=== PATIENT | male | born 2000 | race Caucasian/White ===

== ENCOUNTER 2024-12-15 08:51 | Emergency (ER) | payer OTHER, SELFPAY ==
[2024-12-15 08:59] VITALS: BP 141/67; PULSE 75; RESP 18; TEMP 36.6; O2SAT 99; BMI 36.6
--- NOTE | 2024-12-15 09:08 | EKG_ITS ---
[address] [address] Test Date: 2024-12-15 Pat Name: Manjinder Malcolm Department: [facility] Room: Gender: Male Dimension Specification Inspector: : [id number] Requested By: Order Number: [id number] Reading MD: Eyal Guajardo MD Measurements Intervals [place] Rate: 71 P: 39 IN: 164 QRS: 71 QRSD: 100 T: 22 QT: 388 QTc: 421 Interpretive Statements Normal sinus rhythm Electronically Signed On 12-20-2024 7:41:43 PDT by Eyal Guajardo MD
--- NOTE | 2024-12-15 09:19 | ED.SOB ---
HPI - SOB/Dyspnea General Chief Complaint: Shortness of Breath/Dyspnea Stated Complaint: Tight chest, SOB, Headache 4 days Time Seen by Provider: 12/15/24 09:18 Source: patient, RN notes reviewed and old records reviewed Mode of arrival: Ambulatory Limitations: no limitations History of Present Illness HPI Narrative: 24-year-old male no reported medical issues presents with complaint of nasal congestion, upper respiratory symptoms, headache, myalgias, nonproductive cough, some chest tightness and mild shortness of breath. Patient states has been going on for about 4 days. Went to sit call today at the [facility] and was sent here for evaluation. He states he is not aware of any fevers. States he has coughed up a little bit of phlegm but has always swallowed it. Denies any swelling in his extremities. Has had some mild constipation. He has had some mild nausea but no vomiting. No dysuria urgency or frequency. Patient states no medical issues no prior surgeries. No known drug allergies. Reports no tobacco, no alcohol, no recreational drugs. 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 Related Data Allergies Allergy/AdvReac Type Severity Reaction Status Date / Time No Known Drug Allergies Allergy Verified 12/15/24 09:00 Review of Systems Review of Systems ROS Unobtainable: All systems reviewed & are unremarkable except as noted in HPI and below Patient History Social History Smoking Status: Never smoker Smoking Status: Never smoker Exam Narrative Exam Narrative: GEN: well nourished, well appearing male, alert and oriented x 3, patient appears to be in my distress. HEENT: Atraumatic, pupils are equal round reactive to light, extraocular movements are intact, mild bilateral nasal congestion, TMs are clear with no fluid, there is no conjunctival pallor. Throat is clear without any exudates, erythema, tonsillar enlargement or uvular deviation HEART: Regular rate and rhythm without murmur, clicks, rubs. No edema bilateral upper and lower extremity. No JVD. LUNGS:Lungs clear to auscultation, no wheezes, rales, crackles, chest moves symmetrically, no tachypnea or accessory muscle use. ABD:bowel sounds normal, soft, non-tender, no guarding, rebound, rigidity, no masses noted, no hepatosplenomegaly MSCL: Full range of motion NEURO:CN 2-12 intact, sensation normal Initial Vital Signs Initial Vital Signs: Vital Signs Temperature 97.8 F 12/15/24 08:59 Pulse Rate 75 12/15/24 08:59 Respiratory Rate 18 12/15/24 08:59 Blood Pressure 141/67 H 12/15/24 08:59 Pulse Oximetry 99 12/15/24 08:59 Oxygen Delivery Method Room Air 12/15/24 08:59 Course Orders Ordered: ED Orders 12/15/24 09:08 EKG-12 Lead Stat 12/15/24 09:16 Covid-19 + FLU A/B + RSV - PCR Stat 12/15/24 09:45 Chest [XR chest 2V] Stat Vital Signs Vital signs: Vital Signs - 8 hr 12/15/24 08:59 12/15/24 09:27 12/15/24 09:30 Temperature 97.8 F Pulse Rate 75 72 Respiratory Rate 18 14 Blood Pressure 141/67 H 128/68 Pulse Oximetry 99 98 Oxygen Delivery Method Room Air 12/15/24 09:30 Temperature Pulse Rate 73 Respiratory Rate 12 Blood Pressure Pulse Oximetry 98 Oxygen Delivery Method MDM - SOB/Dyspnea Lab Data Labs: Lab Results 12/15/24 Range/Units 09:16 SARS-CoV-2 (PCR) Negative (Negative) Influenza A (RT-PCR) Flu a negative (NEGATIVE) Influenza B (RT-PCR) Flu b negative (NEGATIVE) RSV (PCR) Negative (Negative) ECG Data Attestation: I personally reviewed and interpreted this ECG as follows: Prior ECG tracings: not available for review Interpretation: Sinus rhythm rate of 71 MT 164 QRS of 100 QTC of 421, no acute ST elevation depression noted. No prior for comparison MDM Narrative Medical decision making narrative: EKG shows sinus rhythm, no acute ST changes. COVID/influenza/RSV is negative Chest x-ray mild pulmonary vascular congestion no focal intra pleural effusion or pneumothorax. 24-year-old male with a recent upper respiratory symptoms, myalgias, headache, some mild chest discomfort and shortness of breath. Patient's vitals are overall appropriate no hypoxia no signs of sepsis. Discussed with the patient he feels comfortable with discharge home I suspect his symptoms are more related to a viral illness. He is hemodynamically stable with no other red flag changes. No long distance travel. Discussed return precautions all questions he. Discharge Plan Departure Patient Disposition: Home Clinical Impression: Bronchitis Instructions: DI for Acute Bronchitis Activity Restrictions/Additional Instructions: Follow up for recheck as needed. You can take acetaminophen and/or ibuprofen for any fevers or myalgias. Please return if you develop new or worsening chest pain, increased shortness of breath, coughing up blood, any lightheadedness or passing out, persistent fever, any new swelling in extremities or other new or concerning changes. Referrals: [facility] [Primary Care Provider, Family Practice] Stand Alone Forms: Patient Portal/API, Work Release Note
[2024-12-15 09:27] VITALS: PULSE 72; RESP 14; O2SAT 98
[2024-12-15 09:30] VITALS: BP 128/68; PULSE 73; RESP 12; O2SAT 98
--- NOTE | 2024-12-15 09:45 | DI.RAD.S_ITS ---
PROCEDURE: XR CHEST 2V INDICATIONS: chest tightness, URI, cough TECHNIQUE: 2 views of the chest were acquired. COMPARISON: None. FINDINGS: Surgical changes and devices: None. Lungs and pleura: Mild congestive changes are seen. No pleural effusions or pneumothorax. Mediastinum: Mediastinal contours are normal. Heart size is normal. Bones and chest wall: No suspicious bony abnormalities. Soft tissues appear unremarkable. IMPRESSION: Mild pulmonary vascular congestion. No focal infiltrate, pleural effusion or pneumothorax. Dictated by: Aidan Marie M.D. on 12/15/2024 at 10:44 Approved by: Aidan Marie M.D. on 12/15/2024 at 10:44
[2024-12-15 10:09] LABS: COVID-19 CEPHEID 4-PLEX PCR Negative (Negative); Influenza A - CEPHEID Flu A NEGATIVE (NEGATIVE); Influenza B - CEPHEID Flu B NEGATIVE (NEGATIVE)
[2024-12-15 10:40] VITALS: PULSE 75; O2SAT 97
[2024-12-15 11:00] VITALS: PULSE 73; O2SAT 98
== END 2024-12-15 11:28 | disposition home or self-care (01) ==
PROVIDERS: Emergency Provider Emergency Medicine
DX: J40 Bronchitis, not specified as acute or chronic (principal); R07.9 Chest pain, unspecified
CPT/HCPCS: 71046; 87637; 93005; 99282; 99284